=== PATIENT | female | born 1980 | race Caucasian/White ===

== ENCOUNTER 2017-03-14 18:00 | Emergency (ER) | payer BC ==
[2017-03-14 18:13] VITALS: BP 112/76; PULSE 87; TEMP 98.1; BMI 24.5
--- NOTE | 2017-03-14 18:19 | PDOC ---
History of Present Illness - General History Source: Patient Exam Limitations: No Limitations - History of Present Illness Initial Comments: 03/14/17 18:19 The patient is a 37 year old female, with no significant past medical history, who presents to the ED for further evaluation of right hand finger fracture s/p mechanical injury approximately 1 month ago. The patient reports she something fell on her right hand pinky finger 1 month ago. Since then, the patient reports pain and has not been able to use her right fifth finger. Patient reports she is right handed and has been able to use fingers 1-4 and her left hand for typing and other duties. Patient reports pain worsened earlier this week and she presented to [facility] for further evaluation. At the time she received an X-Ray, which revealed a fracture at the right 5th finger. Patient received a prescription to follow-up in the ER and receive an MRI for her finger. Patient reports taking advil for the pain with minimal relief. She denies any fever or chills. She denies any other trauma. She denies any recent travel or sick contacts. Allergies: None reported Past Surgical History: None reported Social History: Non smoker. No ETOH or drug use <Jermaine Wilkins - Last Filed: 03/14/17 18:19> - General History Source: Patient Exam Limitations: No Limitations <Joycelyn Bowles - Last Filed: 03/15/17 09:22> - General Chief Complaint: Injury Stated Complaint: RT 5TH FINGER INJURY Time Seen by Provider: 03/14/17 18:08 Past History <Jermaine Wilkins - Last Filed: 03/14/17 18:19> - Past Medical History Other medical history: DENIES - Psycho/Social/Smoking Cessation Hx Anxiety: No Suicidal Ideation: No Smoking History: Never smoked Have you smoked in the past 12 months: No Information on smoking cessation initiated: No Hx Alcohol Use: No Drug/Substance Use Hx: No Substance Use Type: None <Joycelyn Bowles - Last Filed: 03/15/17 09:22> - Past Medical History Allergies/Adverse Reactions: Allergies Allergy/AdvReac Type Severity Reaction Status Date / Time No Known Allergies Allergy Verified 03/14/17 18:03 Home Medications: Ambulatory Orders NK [No Known Home Medication] 03/14/17 Review of Systems - Review of Systems Able to Perform ROS?: Yes Comments:: 03/14/17 18:20 GENERAL/CONSTITUTIONAL: No: fever, chills, weakness, loss of appetite. HEAD, EYES, EARS, NOSE AND THROAT: No: change in vision, ear pain, discharge, sore throat, throat swelling. CARDIOVASCULAR: No: chest pain, lightheadedness, palpitations, syncope RESPIRATORY: No: cough, shortness of breath, wheezing, hemoptysis, stridor. GASTROINTESTINAL: No: nausea, vomiting, abdominal cramping, diarrhea, rectal bleeding, constipation. GENITOURINARY: No: dysuria, hematuria, frequency, urgency, flank pain. MUSCULOSKELETAL: Yes: +Right hand fifth finger fracture with associated pain. No : back pain, neck pain, joint pain, muscle swelling or pain SKIN AND BREASTS: No: lesions, pallor, rash or easy bruising. NEUROLOGIC: No: headache, vertigo, paresthesias, weakness ENDOCRINE: No: unexplained weight gain or loss HEMATOLOGIC/LYMPHATIC: No: anemia, easy bleeding, swelling nodes <Wilkins,Giomilsy - Last Filed: 03/14/17 18:19> *Physical Exam - Vital Signs Last Vital Signs Temp Pulse Resp BP Pulse Ox 98.1 F 87 18 112/76 100 03/14/17 18:00 03/14/17 18:00 03/14/17 18:00 03/14/17 18:00 03/14/17 18:00 - Physical Exam Comments: 03/14/17 18:20 GENERAL: The patient is in no acute distress. HEAD: Normal with no signs of trauma. EYES: PERRLA, EOMI, sclera anicteric, conjunctiva clear. ENT: Ears normal, nares patent, oropharynx clear without exudates. Moist mucous membranes. NECK: Normal range of motion, supple without lymphadenopathy, JVD, or masses. LUNGS: Breath sounds equal, clear to auscultation bilaterally. No wheezes, and no crackles. HEART:Regular rate and rhythm, normal S1 and S2 without murmur, rub or gallop. ABDOMEN: Soft, nontender, normoactive bowel sounds. No guarding, no rebound. EXTREMITIES: Tenderness to the distal and middle phalanx of the right hand fifth digit. Otherwise normal range of motion, no edema. No clubbing or cyanosis. No erythema, or tenderness. NEUROLOGICAL: Cranial nerves II through XII grossly intact. Normal speech. No focal neurological deficits. MUSCULOSKELETAL: Back non-tender to palpation, no CVA tenderness SKIN: Warm, Dry, normal turgor, no rashes or lesions noted. <Jermaine Wilkins - Last Filed: 03/14/17 18:19> - Vital Signs Last Vital Signs Temp Pulse Resp BP Pulse Ox 98.1 F 87 18 112/76 100 03/14/17 18:00 03/14/17 18:00 03/14/17 18:00 03/14/17 18:00 03/14/17 18:00 <Joycelyn Bowles - Last Filed: 03/15/17 09:22> ED Treatment Course - RADIOLOGY Radiology Studies Ordered: Category Date Time Status FINGER(S) RIGHT [RAD] Stat Radiology 03/14/17 18:08 Ordered <Joycelyn Bowlse - Last Filed: 03/15/17 09:22> Medical Decision Making - Medical Decision Making 03/14/17 18:19 A portion of this note was documented by scribe services under my direction. I have reviewed the details of the note, within reason, and agree with the documentation with the following case summary and management plan written by me. Nursing documentation reviewed and incorporated into medical decision making 03/14/17 18:39 This is a 37-year-old female with no significant past medical history, right- hand dominant who presents emergency department with a complaint of right pinky pain. Patient states possibly one month ago she sustained an injury to her finger, crushed by pizza dough container. After that she had some pain which seemed to have worsened. She was seen at an urgent care 2 days ago, told that she had fractures related to follow up with the ER. Patient was also given a prescription for an MRI of her pinky finger. At no point was she referred to a hand specialist Pt reports pain at the distal phalynx, DIP Pt is tender to palpation No erythema NO bruising Limited range of motion due to pain Soft compartments Sensation in tact X ray appears grossly negative Pt placed in finger splint pt asked to follow up with Dr Kim Return to the ER for any other concerns or complaints Motrin for pain 03/15/17 09:21 <Joycelyn Bowles - Last Filed: 03/15/17 09:22> *DC/Admit/Observation/Transfer - Attestations Scribe Attestion: 03/14/17 18:21 Documentation prepared by Jermaine Wilkins, acting as medical cash poster for Joycelyn Bowles MD. <Jermaine Wilkins - Last Filed: 03/14/17 18:19> - Discharge Dispostion Admit: No <Joycelyn Bowles - Last Filed: 03/15/17 09:22> Diagnosis at time of Disposition: Finger injury Qualifiers: Encounter type: initial encounter Laterality: right Qualified Code(s): S69.91XA - Unspecified injury of right wrist, hand and finger(s), initial encounter - Discharge Dispostion Disposition: HOME Condition at time of disposition: Stable - Patient Instructions Printed Discharge Instructions: DI for Finger Sprain Additional Instructions: Ms. Zuluaga Thank you for coming in to the ER today Please follow up with the Hand Specialist as we discussed within 1 week Your x ray will be read officially tomorrow If there are new findings, I will call you Please wear splint as is tolerable for you Return to the ER for increased pain, swelling, bruising, color change You can take motrin 600mg every 8 hours for pain (with food or milk) - Post Discharge Activity Work/School Note: Back to Work
== END 2017-03-14 18:59 | disposition home or self-care (01) ==
LOC: FER 18:00
PROC: 2W3JX1Z Immobilization of Right Finger using Splint (ICD-10-PCS; principal; 2017-03-14)
DX: S69.91XA Unspecified injury of right wrist, hand and finger(s), initial encounter (principal); W20.8XXA Other cause of strike by thrown, projected or falling object, initial encounter; Y93.89 Activity, other specified; Y92.9 Unspecified place or not applicable
CPT/HCPCS: 73140-TC-RT; 99283-25

== ENCOUNTER 2019-01-23 08:55 | Emergency (ER) | payer BC ==
[2019-01-23 09:15] VITALS: BP 132/92; PULSE 72; TEMP 98.2; BMI 23.4
[2019-01-23] MEDS ORDERED: METOCLOPRAMIDE HCL INJECTION 10 MG/2 ML VIAL IVPUSH ONE (09:27)
[2019-01-23] MEDS ORDERED: METOCLOPRAMIDE HCL INJECTION 10 MG/2 ML VIAL ONE (09:27)
[2019-01-23] MEDS ORDERED: SODIUM CHLORIDE 1,000 ML IV STA (09:27)
[2019-01-23] MEDS ORDERED: KETOROLAC TROMETHAMINE 30 MG/1 ML VIAL IVPUSH ONE (10:01)
--- NOTE | 2019-01-23 10:02 | PDOC ---
History of Present Illness - General Chief Complaint: Migraine Headache Stated Complaint: migraine Time Seen by Provider: 01/23/19 09:15 History Source: Patient, Family Exam Limitations: No Limitations - History of Present Illness Initial Comments: 01/23/19 10:03 CHIEF COMPLAINT: Severe migraine HISTORY OF PRESENT ILLNESS: 38-year-old female with a history of recurrent migraines on Maxalt. Patient states she got her usual headache, more on the right side with light sensitivity and right eye discomfort, took Maxalt without relief. She now comes to the emergency department for further medication. She states she gets severe migraines and has to go to the ER at times. She denies any change in the current headache from her usual severe migraine. There is no history of head trauma. There is no history of fever. There is no history of neck stiffness. The headache is more on the right side which is typical for her. She has light sensitivity which is also typical for her. REVIEW OF SYSTEMS: No fever or chills No head trauma No vision loss Positive nausea Positive photophobia Positive sonophobia Past History - Past Medical History Allergies/Adverse Reactions: Allergies Allergy/AdvReac Type Severity Reaction Status Date / Time No Known Allergies Allergy Verified 01/23/19 08:56 Home Medications: Ambulatory Orders Rizatriptan Benzoate [Maxalt Trimmer Machine] 5 mg PO PRN PRN 01/23/19 COPD: No Other medical history: migraines - Suicide/Smoking/Psychosocial Hx Smoking History: Never smoked Have you smoked in the past 12 months: No Hx Alcohol Use: No Drug/Substance Use Hx: No Substance Use Type: None *Physical Exam - Vital Signs Last Vital Signs Temp Pulse Resp BP Pulse Ox 98.2 F 72 16 132/92 100 01/23/19 08:55 01/23/19 08:55 01/23/19 08:55 01/23/19 08:55 01/23/19 08:55 - Physical Exam Comments: 01/23/19 10:05 GENERAL: The patient is awake, alert, and fully oriented, initially squinting her eyes due to photophobia, and in distress from the headache, but after receiving IV Reglan, patient is now in no acute distress. Initial pain score was 10 over 10, now 6/10 and is rapidly improving. HEAD: Normal with no signs of trauma. EYES: Pupils equal, round and reactive to light, extraocular movements intact, sclera anicteric, conjunctiva clear. ENT: Ears normal, nares patent, oropharynx clear without exudates. Moist mucous membranes. NECK: Normal range of motion, supple without lymphadenopathy, JVD, or masses. No nuchal rigidity. No meningismus. LUNGS: Breath sounds equal, clear to auscultation bilaterally. No wheezes, and no crackles. HEART: Regular rate and rhythm, normal S1 and S2 without murmur, rub or gallop. ABDOMEN: Soft, nontender, normoactive bowel sounds. No guarding, no rebound. No masses. EXTREMITIES: Normal range of motion, no edema. No clubbing or cyanosis. No cords, erythema, or tenderness. NEURO: Mental status: The patient is oriented x3. Cranial nerves: Cranial nerves II through XII are intact Motor: The upper extremities are 5 over 5 in all muscle groups. The lower extremities are 5 over 5 in all muscle groups. Sensation: Sensation is intact to light touch throughout. Reflexes: 2+ and symmetric in the upper and lower extremities. Gait: Normal. Heel and toe walking are normal. PSYCH: Normal mood, normal affect. SKIN: Warm, Dry, normal turgor, no rashes or lesions noted. ED Treatment Course - Medications Given in the ED: ED Medications Discontinued Medications Generic Name Dose Route Start Last Admin Trade Name Eranq PRN Reason Stop Dose Admin Diphenhydramine HCl 25 mg 01/23/19 09:27 01/23/19 09:35 Benadryl Injection - IVPB 01/23/19 09:28 25 mg ONCE ONE Administration Metoclopramide HCl 10 mg 01/23/19 09:27 01/23/19 09:38 Reglan Injection - IVPUSH 01/23/19 09:28 10 mg ONCE ONE Administration Medical Decision Making - Medical Decision Making 01/23/19 11:09 38-year-old female with history of recurrent migraines on migraine medication at home. Also with a history of ED visits previously for severe migraines. Patient presents today complaining of her typical severe migraine, no change from prior severe migraines. She is requesting treatment for the headache. She denies any focal neurological complaints. On examination, her neuro exam is normal. Her mental status is normal. Patient treated with Reglan, Benadryl, and Toradol. On reassessment at this time, she states her migraine is gone. She is requesting discharge home. She states that based on previous experience with similar headaches she will be fine when she gets home and can take Advil as needed. Patient stable for discharge to follow up with her primary physician. *DC/Admit/Observation/Transfer Diagnosis at time of Disposition: Migraine Qualifiers: Migraine type: without aura Status migrainosus presence: without status migrainosus Intractability: not intractable Qualified Code(s): G43.009 - Migraine without aura, not intractable, without status migrainosus - Discharge Dispostion Disposition: HOME Condition at time of disposition: Improved Decision to Admit order: No - Referrals Referrals: Amira Bailon MD [Primary Care Provider] - - Patient Instructions Printed Discharge Instructions: DI for Migraine Additional Instructions: Today you were treated in the emergency department for migraine. You were given Reglan, Benadryl, and Toradol with resolution of the headache. You are advised to continue your Maxalt as needed. Also you may take Advil over-the- counter if needed. Follow-up with your primary care physician. Return to the emergency department for any severe or progressive symptoms. - Post Discharge Activity
[2019-01-23] MEDS ORDERED: KETOROLAC TROMETHAMINE 30 MG/1 ML VIAL ONE (10:04)
== END 2019-01-23 11:17 | disposition home or self-care (01) ==
LOC: SUPCPDRO 08:55 → FER 08:55
PROC: 3E033GC Introduction of Other Therapeutic Substance into Peripheral Vein, Percutaneous Approach (ICD-10-PCS; principal; 2019-01-23)
PROC: 3E0333Z Introduction of Anti-inflammatory into Peripheral Vein, Percutaneous Approach (ICD-10-PCS; 2019-01-23)
PROC: 3E0337Z Introduction of Electrolytic and Water Balance Substance into Peripheral Vein, Percutaneous Approach (ICD-10-PCS; 2019-01-23)
DX: G43.009 Migraine without aura, not intractable, without status migrainosus (principal)
CPT/HCPCS: 99282-25; J7030

== ENCOUNTER 2019-07-15 13:01 | Emergency (ER) | payer BC ==
[2019-07-15 13:04] VITALS: BMI 24.2
[2019-07-15] MEDS ORDERED: SODIUM CHLORIDE 0.9% 500 ML INFUS.BAG IV ONE (13:10)
[2019-07-15] MEDS ORDERED: METOCLOPRAMIDE HCL INJECTION 10 MG/2 ML VIAL IVPUSH ONE (13:10)
[2019-07-15] MEDS ORDERED: ACETAMINOPHEN 1000 MG/100 ML VIAL (NON FORMULARY) IVPB ONE (13:10)
[2019-07-15] MEDS ORDERED: METOCLOPRAMIDE HCL INJECTION 10 MG/2 ML VIAL ONE (13:16)
[2019-07-15] MEDS ORDERED: ACETAMINOPHEN INJECTION 100 ML IVPB ONE (13:16)
--- NOTE | 2019-07-15 13:16 | PDOC ---
History of Present Illness - General Chief Complaint: Migraine Headache Stated Complaint: Migraine Time Seen by Provider: 07/15/19 13:05 History Source: Patient Exam Limitations: No Limitations - History of Present Illness Initial Comments: 07/15/19 13:10 HPI 39-year-old female with history of migraines presenting with left-sided temporal headache since last night, described as "hammering "and associated with photosensitivity, nausea and vomiting. She took Advil this morning at 8 AM with minimal effect. Patient states sx are similar to prior migraine exacerbations, She is also on triptan for migraine management which she takes as needed, took one dose last night but then vomited.. Denies any particular triggers. No recent cough or congestion, fevers, neck stiffness or back pain. Denies possibility of she is currently on abx for UTI, x 2 days out of 1 week course. Denies fever, chills, chest pain, SOB, palpitation, dizziness, weakness, abdominal pain, bladder and bowel problems, focal weakness/paresthesias, leg swelling/pain, rash. No sick contacts or travel. No suspicious food intake Allergies: None Past Medical History/PSH: as above Social history: Lives with family. No tobacco, ETOH or drug use. Meds: as documented in EMR Family history: noncontributory Review of systems Constitutional: no fevers or chills. No weakness HEENT: +headache, +photosensitivity. no sore throat no ear pain. No congestion. No visual/hearing disturbances. CVS: no cp or syncope. Resp: no sob. No cough. Gastrointestinal: +nausea/vomiting. no abdominal pain, diarrhea. Genitourinary: no urinary sx, hematuria. no frequency or urgency MUSCULOSKELETAL: No joint pain and swelling. No neck or back pain. SKIN: no redness or skin changes, no discharge, no rash. No wounds. Hematologic: no easy bruising/bleeding. NEUROLOGIC: +headache. No dizziness, LOC or altered mental status. No weakness, numbness or tingling. Psych: no anxiety or depression Allergic/Immunologic: no allergies All other systems reviewed and negative, or as documented in HPI. Physical exam General: awake and alert, NAD. HEENT: NCAT, PERRL, EOMI, clear conjunctiva, anicteric, no nystagmus, moist mucus membranes, clear oropharynx, no oral lesions.. normal phonation Neck: neck supple, FROM; no nuchal rigidity or meningismus. Resp: CTAB, normal and even respirations, no respiratory distress CVS: +tachycardic, regular rhythm, no murmurs, 2+ peripheral pulses throughout, no peripheral edema Abdomen: soft, NTND, no rebound or guarding. Back: nontender, normal inspection and ROM MSK: no edema, CHRISTOPHER x4, ROM intact. No clubbing or cyanosis. normal bulk and tone. Extremities: no calf tenderness Neuro: alert, oriented appropriately; no focal neurologic deficits, CN II-XII grossly intact, speech clear. 5/5 prox and distal upper and lower extremity strength, SILT in all extrem. gait stable. Psych: Calm and cooperative Skin: warm and well perfused, cap refill <2 sec, normal color, no rash or skin discoloration. 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 sx are c/w prior migraine headache. similar to prior. Negative for red flag sx, Patient denies new weakness on one side of the body, diplopia, vertigo, slurred speech, headache, or difficulty walking, sz or AMS. no infectious symptoms, no petechiae, no photophobia, no dysarthria, no facial asymmetry, and no focal deficits. Very low clinical suspicion for meningitis. No history of anticoagulation, trauma, , cancer or immunocompromised state. Mental status was normal, no neurological deficits were noted. Will treatment the patient symptomatically and reassess. 07/15/19 14:05 - pt received IVF, tylenol and reglan, reassess VS rechecked, normalized. The patient improved significantly now headache resolved, down to 0/10, neuro intact, and was discharged in stable condition. Recommendations were given for follow-up with PCP in 1-2 days and to return to the ED for worsening of headache or any other concerns as documented in DC instructions. outpatient neuro eval, pt has neurologists, last imaging 1 year ago which was unremarkable. 07/15/19 14:49 07/15/19 14:51 Discharge - Discharge Information Problems reviewed: Yes Clinical Impression/Diagnosis: Headache Qualifiers: Headache type: unspecified Headache chronicity pattern: acute headache Intractability: not intractable Qualified Code(s): R51 - Headache Condition: Stable Disposition: HOME - Admission No - Follow up/Referral Referrals: Amira Bailon MD [Primary Care Provider] - Harvey Chinchilla MD [Staff Physician] - Андрей Whittington MD [Staff Physician] - - Patient Discharge Instructions Patient Printed Discharge Instructions: Migraine Headaches (Alternative Therapy ), DI for Migraine Additional Instructions: 1) Please follow-up with your primary care doctor in the next 1-2 days. Please call tomorrow for for any urgent issues. follow up with your neurologist, our referrals given as well. 2) If you have any worsening of symptoms or any other concerns please return to the ED immediately. Return if worsening symptoms including fevers, headache, vomiting, visual or hearing disturbances, abdominal pain, chest pain, shortness of breath, syncope, dehydration, inability to take things by mouth/vomiting, altered mental status, or worsening concerning symptoms. 3) Please continue taking your home medications as directed. avoid triggers for your migraine finish your antibiotic for your urinary tract infection Stay well hydrated and rest adequately. Make an appointment. If you cannot follow-up with your primary care doctor please return to the ED - Post Discharge Activity
[2019-07-15 15:01] VITALS: BP 107/74; PULSE 77; TEMP 98.2
== END 2019-07-15 15:02 | disposition home or self-care (01) ==
LOC: FER 13:01
PROC: 3E033NZ Introduction of Analgesics, Hypnotics, Sedatives into Peripheral Vein, Percutaneous Approach (ICD-10-PCS; principal; 2019-07-15)
PROC: 3E0337Z Introduction of Electrolytic and Water Balance Substance into Peripheral Vein, Percutaneous Approach (ICD-10-PCS; 2019-07-15)
PROC: 3E033GC Introduction of Other Therapeutic Substance into Peripheral Vein, Percutaneous Approach (ICD-10-PCS; 2019-07-15)
DX: R51 Headache (principal)
CPT/HCPCS: 99282-25; J0131